=== PATIENT | male | born 2000 | race Two or more races ===

== ENCOUNTER 2024-05-29 18:38 | Emergency (ER) | payer OTHER ==
[~2024-05-29] VITALS: Ht 170.2 cm; Wt 57.6 kg
[2024-05-29 19:19] VITALS: BP 113/72; O2SAT 100
[2024-05-29] MEDS ORDERED: METOCLOPRAMIDE HCL 5 MG/ML VIAL IM STA (20:45)
[2024-05-29] MEDS ORDERED: FAMOtidine 10 MG/ML (4ML VIAL) IV PUSH STA (20:46)
[2024-05-29] MEDS ORDERED: 0.9 % SODIUM CHLORIDE 1,000 ML IV STA (20:46)
[2024-05-29] MEDS ORDERED: METOCLOPRAMIDE HCL 5 MG/ML VIAL ONE (21:01)
[2024-05-29] MEDS ORDERED: FAMOTIDINE/PF 20 MG/2 ML VIAL ONE (21:01)
== END 2024-05-29 22:48 | disposition home or self-care (01) ==
LOC: ER 18:40
DX: K29.70 Gastritis, unspecified, without bleeding (principal); R11.10 Vomiting, unspecified